=== PATIENT | female | born 1995 | race Caucasian/White ===

== ENCOUNTER 2017-05-04 21:20 | Emergency (ER) | payer SELFPAY ==
[~2017-05-04] VITALS: Ht 157.5 cm; Wt 52.3 kg
[2017-05-04 21:20] VITALS: TEMP 98.4
[2017-05-04] MEDS ORDERED: APIDRAVL SQ (21:27)
[2017-05-04] MEDS ORDERED: LANTUS100 U/ML SQ (21:29)
[2017-05-04 21:43] LABS: BASO % 0.3 % (0.0-2.0); EOS # 0.1 (0.0-0.7); EOS % 1.2 % (0-4.0); GRAN # 3.8 (1.4-6.5); GRAN % 62.8 % (42.2-75.2); HEMATOCRIT 37.4 % (37.0-47.0); HEMOGLOBIN 12.8 g/dl (12.5-16.0); LYMPH # 1.8 (1.2-3.4); LYMPH % 30.7 % (20.0-51.0); MEAN CELL VOLUME 86 fl (80.0-100.0); MEAN CORPUSCULAR HEMOGLOBIN 30 pg (27.0-31.0); MEAN CORPUSCULAR HGB CONC 34 g/dl (33.0-37.0); MONO # 0.3 (0.1-0.6); MONO % 4.8 % (1.7-9.3); PLATELET COUNT 213 K/mm3 (130-400); RED BLOOD COUNT 4.34 M/mm3 (4.10-5.30); REDCELL DISTRIBUTION WIDTH-CV 12.8 % (11.5-14.5)
[2017-05-04 21:50] LABS: ADJUSTED CALCIUM 9.3 mg/dL (8.4-10.2); ALANINE AMINOTRANSFERASE 33 U/L (9-52); ALBUMIN 3.8 gm/dL (3.5-5.0); ALKALINE PHOSPHATASE 82 U/L (50-136); ANION GAP 16 mmol/L (7-16); BILIRUBIN,TOTAL 0.7 mg/dL (0.0-1.0); BLOOD UREA NITROGEN 16 mg/dL (7-17); CALCIUM 9.1 mg/dL (8.4-10.2); CARBON DIOXIDE 21 mmol/L (22-30); CHLORIDE 100 mmol/L (98-107); CREATININE, serum 0.63 mg/dL (0.52-1.25); POTASSIUM 3.8 mmol/L (3.4-5.0); SODIUM 137 mmol/L (137-145); TOTAL PROTEIN 6.1 gm/dL (6.4-8.2)
[2017-05-04 21:51] LABS: GLUCOSE 529 mg/dL (74-106)
[2017-05-04 23:03] LABS: ARTERIAL BLD GAS O2 SATURATION 95.6 % (92-100); ARTERIAL BLD GAS TCO2 CT 20.1; ARTERIAL BLOOD GAS BASE EXCESS -6.7 (-2-2); ARTERIAL BLOOD GAS HCO3 18.9 meq/L (22-26); ARTERIAL BLOOD GAS PHT 7.31 C (7.35-7.45); ARTERIAL BLOOD GAS PO2 93.4 mmHg (80-100); ARTERIAL BLOOD GAS PO2T 93.4 (80-100); ARTERIAL BLOOD GAS pH 7.31 (7.35-7.45); OXYHEMOGLOBIN 94.8 %
[2017-05-04 23:04] LABS: ALLEN TEST YES; ALLENS TEST RESULT PASS; ATS? YES
[2017-05-05 01:41] VITALS: BP 115/69; PULSE 70
== END 2017-05-05 01:05 | disposition home or self-care (01) ==
LOC: COL.ER 21:20
PROVIDERS: Physician Assistant
DX: E10.65 Type 1 diabetes mellitus with hyperglycemia (principal); Z79.4 Long term (current) use of insulin; F17.210 Nicotine dependence, cigarettes, uncomplicated; R00.0 Tachycardia, unspecified; F10.120 Alcohol abuse with intoxication, uncomplicated; Y90.6 Blood alcohol level of 120-199 mg/100 ml
CPT/HCPCS: J1815; J7030